=== PATIENT | female | born 1990 | race Caucasian/White ===

== ENCOUNTER → 2017-04-01 | Outpatient (CLI) | payer OTHER ==
--- NOTE | 2017-04-01 16:14 | XR ---
Right shoulder HISTORY: Trauma and pain 3 views of the right shoulder Bone mineralization, joint spaces and alignment are maintained. Right lung apex as visualized is norm al. Motion present on the exam. IMPRESSION: No fracture or dislocation.
--- NOTE | 2017-04-01 16:15 | XR ---
EXAMINATION TYPE: XR chest 2V DATE OF EXAM: 04/01/2017 COMPARISON: NONE HISTORY: Right-sided rib pain. TECHNIQUE: Frontal and lateral views of the chest are obtained. FINDINGS: Exam is somewhat suboptimal given patient body habitus and underpenetration. There is no f ocal air space opacity, pleural effusion, or pneumothorax seen. The cardiac silhouette size is withi n normal limits. The osseous structures are intact. IMPRESSION: Slightly limited exam given patient body habitus and underpenetration, otherwise no card iopulmonary process.
--- NOTE | 2017-04-01 16:16 | XR ---
Right RIBS HISTORY: Trauma and pain 4 views of the right RIBS There is no displaced rib fracture. Bone mineralization is maintained. No evident pneumothorax or ple ural effusion. Exam somewhat limited by patient body habitus. IMPRESSION: No displaced fracture evident. Bone scan could be performed for increased sensitivity as indicated, limitations as described.
== END | disposition home or self-care (01) ==
LOC: RADXRMAIN 15:52
PROVIDERS: ATTEND Emergency Medicine
DX: S43.401A Unspecified sprain of right shoulder joint, initial encounter (principal); S20.20XA Contusion of thorax, unspecified, initial encounter; R07.89 Other chest pain
CPT/HCPCS: 71020

== ENCOUNTER 2017-04-11 16:15 | Emergency (ER) | payer OTHER ==
[2017-04-11 16:37] VITALS: BP 179/93; PULSE 103; RESP 18; TEMP 98.4
[2017-04-11] MEDS ORDERED: ONDANSETRON 4 MG ODT STARTER PACK 2 TAB BTL PO STA (17:40)
--- NOTE | 2017-04-11 17:43 | ED ---
General Adult HPI - General Chief complaint: Abdominal Pain Stated complaint: Rib Pain-[facility] Time Seen by Provider: 04/11/17 16:57 Source: patient, RN notes reviewed Mode of arrival: ambulatory Limitations: no limitations - History of Present Illness Initial comments: Patient 26-year-old female who presents emergency room today with chief complaint of right-sided rib pain. She does admit that while she was at work 2 weeks ago she had an injury. She states that she was helping a patient up and the patient fell down. She states when she went to lift the patient up she felt a pop on the right side. She states the patient also then fell on top of her. She states that she has been following up with [facility]. She states that she's been having increased pain been using ibuprofen as discussed. She states is not seem to help with the pain. She states she did have an episode of nausea and vomiting. States been complaining of today was advised complete emergency room for further evaluation. Patient denies any other complaints or associated symptoms. Patient denies any recent fever, chills, shortness of breath, chest pain, dysuria or hematuria, constipation or diarrhea , headaches or visual changes, or any other complaints. - Related Data Home Medications Medication Instructions Recorded Confirmed Albuterol Sulfate [Proair Hfa] 1 - 2 puff INHALATION RT-Q6H PRN 04/11/17 Budesonide/Formoterol Fumarate 2 puff INHALATION RT-BID 04/11/17 04/11/17 [Symbicort 160-4.5 Mcg Inhaler] Cetirizine HCl [Zyrtec] 10 mg PO DAILY 04/11/17 04/11/17 Ibuprofen [Motrin] 200 - 400 mg PO Q6HR PRN 04/11/17 04/11/17 Omeprazole 40 mg PO DAILY 04/11/17 04/11/17 amLODIPine [Norvasc] 2.5 mg PO DAILY 04/11/17 04/11/17 Previous Rx's Medication Instructions Recorded Acetaminophen-Codeine 300-30mg 1 each PO Q6H PRN #12 tablet 04/11/17 [Tylenol #3] Ondansetron Odt [Zofran ODT] 4 mg PO Q8HR PRN #20 tab 04/11/17 Allergies Allergy/AdvReac Type Severity Reaction Status Date / Time diphenhydramine Allergy Swelling, Verified 04/11/17 17:02 [From Benadryl] rash/hives Fish Containing Products Allergy Unknown Verified 04/11/17 17:02 [Fish] kiwi Allergy Unknown Verified 04/11/17 17:02 beckie Allergy Unknown Verified 04/11/17 17:02 metoclopramide Allergy Unknown Verified 04/11/17 17:02 Review of Systems ROS Statement: Those systems with pertinent positive or pertinent negative responses have been documented in the HPI. ROS Other: All systems not noted in ROS Statement are negative. Past Medical History Past Medical History: Hypertension History of Any Multi-Drug Resistant Organisms: None Reported Past Surgical History: No Surgical Hx Reported Past Psychological History: No Psychological Hx Reported Smoking Status: Current every day smoker Past Alcohol Use History: Rare Past Drug Use History: None Reported General Exam - General Exam Comments Initial Comments: General: The patient is awake and alert, in no distress, and does not appear acutely ill. Eye: Pupils are equal, round and reactive to light, extra-ocular movements are intact. No nystagmus. There is normal conjunctiva bilaterally. No signs of icterus. Ears, nose, mouth and throat: There are moist mucous membranes and no oral lesions. Neck: The neck is supple, there is no tenderness or JVD. Cardiovascular: There is a regular rate and rhythm. No murmur, rub or gallop is appreciated. Respiratory: Lungs are clear to auscultation, respirations are non-labored, breath sounds are equal. No wheezes, stridor, rales, or rhonchi. Gastrointestinal: Soft, non-distended. Mild tenderness in the right side of the abdomen. No bruising or swelling.There is no rebound or guarding present. No CVA tenderness. Bowel sounds are unremarkable. Musculoskeletal: Normal ROM. patient does have tenderness over the right lateral anterior aspect of the ribs. No step-off deformity. Strength 5/5. Sensation intact. Pulses equal bilaterally 2+. Neurological: A&O x 3. CN II-XII intact, There are no obvious motor or sensory deficits. Coordination appears grossly intact. Speech is normal. Skin: Skin is warm and dry and no rashes or lesions are noted. Psychiatric: Cooperative, appropriate mood & affect, normal judgment. Limitations: no limitations Course Vital Signs 04/11/17 16:31 Temperature 98.4 F Pulse Rate 103 H Respiratory 18 Rate Blood Pressure 179/93 O2 Sat by Pulse 99 Oximetry Medical Decision Making - Medical Decision Making patient's pain is reproduced on palpation to the lateral aspect of the right ribs. She does have some mild discomfort to the right side of the abdomen however, this is felt to be pain over the right rib. She states the pain is starting in that area. She admits that the nausea vomiting occurred when she was in a lot of pain. She states she's not had any problems when she eats or drinks. She states that it was discussed about possible gallbladder issue and was sent here to the emergency room. She does admit that she recently just ate prior to coming here to the emergency room. Was discussed with patient about obtaining labs and an ultrasound. Advised patient that due to the fact that she was eating and showing most likely a contracted gallbladder would not get a good study. At this time shows couple with pain medication and nausea medication for her symptoms. Advised patient to follow back up with the family doctor return here to the emergency room if symptoms increase worsen. Disposition Clinical Impression: Bruised rib Disposition: HOME SELF-CARE Condition: Good Instructions: Rib Contusion (ED) Additional Instructions: Please use medication as prescribed follow-up the family doctor. Please discuss options for possible ultrasound for gallbladder. Please return here to the emergency room if symptoms increase or worsen or for any other concerns. Prescriptions: Acetaminophen-Codeine 300-30mg [Tylenol #3] 1 each PO Q6H PRN #12 tablet PRN Reason: Pain Ondansetron Odt [Zofran ODT] 4 mg PO Q8HR PRN #20 tab PRN Reason: Nausea Referrals: Orlando Tyson MD [Primary Care Provider] - 1-2 days Time of Disposition: 17:38
== END 2017-04-11 18:07 | disposition home or self-care (01) ==
LOC: EC 16:15
DX: S20.211A Contusion of right front wall of thorax, initial encounter (principal); R10.819 Abdominal tenderness, unspecified site; R11.2 Nausea with vomiting, unspecified; I10 Essential (primary) hypertension; F17.200 Nicotine dependence, unspecified, uncomplicated; Z88.8 Allergy status to other drugs, medicaments and biological substances; Z91.018 Allergy to other foods; Z91.013 Allergy to seafood; Z79.51 Long term (current) use of inhaled steroids; Z79.899 Other long term (current) drug therapy; X50.0XXA Overexertion from strenuous movement or load, initial encounter; Y93.89 Activity, other specified; Y99.0 Civilian activity done for income or pay; Y92.69 Other specified industrial and construction area as the place of occurrence of the external cause
CPT/HCPCS: 99283; S0119

== ENCOUNTER → 2017-12-16 | Outpatient (CLI) | payer OTHER ==
--- NOTE | 2017-12-17 09:55 | US ---
EXAMINATION TYPE: US abdomen complete DATE OF EXAM: 12/16/2017 COMPARISON: NONE CLINICAL HISTORY: R14.0 Abdominal Distension (gaseous). ABD pain, cholecystectomy EXAM MEASUREMENTS: Liver Length: 20.5 cm Gallbladder Wall: Surgically absent CBD: 0.4 cm Spleen: 13.0 cm Right Kidney: 11.9 x 4.7 x 6.7 cm Left Kidney: 13.7 x 5.8 x 6.0 cm Extreme technical limitations due to patient's body habitus (grossly obese) and large amount of ove rlying bowel content Pancreas: Obscured by bowel gas Liver: enlarged, unable to penetrate Gallbladder: Surgically absent Evidence for sonographic Abraham's sign: no CBD: appears wnl Spleen: upper limits of normal Right Kidney: limited evaluation, visualized portions show no evidence of hydronephrosis Left Kidney: limited evaluation, visualized portions show no evidence of hydronephrosis Upper IVC: wnl Abd Aorta: obscured by overlying bowel content Kidneys show normal cortical medullary differentiation. There is no ascites. IMPRESSION: Technically limited exam. Correlate for possible hepatic steatosis, there is hepatomegaly . Post cholecystectomy.
== END | disposition home or self-care (01) ==
LOC: RADUSMAIN 16:02
PROVIDERS: ATTEND Family Medicine
DX: R16.0 Hepatomegaly, not elsewhere classified (principal); Z90.49 Acquired absence of other specified parts of digestive tract
CPT/HCPCS: 76700